=== PATIENT | female | born 1990 | race American Indian/Alaskan Native ===

== ENCOUNTER 2017-12-04 02:16 | Observation (INO) | payer OTHER ==
[2017-12-04 03:35] LABS: Basophils # (Auto) 0.1 K/mm3 (0.0-0.1); Eosinophils # (Auto) 0.3 K/mm3 (0.0-0.4); Eosinophils % (Auto) 4.1 % (0.0-4.3); Lymphocytes # (Auto) 1.7 K/mm3 (1.2-5.4); Lymphocytes % (Auto) 27.8 % (13.4-35.0); Mean Corpuscular HGB Conc 28 % (30-34); Monocytes # (Auto) 0.5 K/mm3 (0.0-0.8); Monocytes % (Auto) 8.6 % (0.0-7.3); Platelet Count 211 K/mm3 (140-440)
[2017-12-04 03:39] LABS: Mean Corpuscular Hemoglobin 16 pg (28-32); Mean Corpuscular Volume 59 fl (79-97)
[2017-12-04 03:40] LABS: Hematocrit 18.1 % (30.3-42.9)
[2017-12-04 03:48] LABS: BUN/Creatinine Ratio 15; Blood Urea Nitrogen 9 mg/dL (7-17); Calcium 8.8 mg/dL (8.4-10.2); Hemolysis Index 9
[2017-12-04 03:58] LABS: Bacteria,Urine 1+ /HPF (Negative); Bilirubin,Urine NEG (Negative); Blood,Urine NEG (Negative); Color,Urine Yellow (Yellow); Mucus,Urine 1+ /HPF; Protein,Urine <15 mg/dL mg/dL (Negative)
[2017-12-04] MEDS ORDERED: NACL 0.9% 500 ML 500 ML IV ONE ×2 (04:32→14:00)
--- NOTE | 2017-12-04 04:39 | ED Elopement Review ---
ED Pt Elopement review - Results review Lab results: Laboratory Tests 12/04/17 12/04/17 12/04/17 02:54 02:54 03:32 WBC 6.3 RBC 3.10 L Hgb 5.0 L* Hct 18.1 L* MCV 59 L MCH 16 L MCHC 28 L RDW 20.0 H Plt Count 211 Lymph % (Auto) 27.8 [place] % (Auto) 8.6 H Eos % (Auto) 4.1 Baso % (Auto) 1.0 Lymph # 1.7 [place] # 0.5 Eos # 0.3 Baso # 0.1 Seg Neutrophils % 58.5 Seg Neutrophils # 3.7 Sodium 136 L Potassium 3.8 Chloride 100.3 Carbon Dioxide 21 L Anion Gap 19 BUN 9 Creatinine 0.6 L Estimated GFR > 60 BUN/Creatinine Ratio 15 Glucose 107 H Calcium 8.8 Urine Color Yellow Urine Turbidity Clear Urine pH 5.0 Ur Specific [place] 1.018 Urine Protein <15 mg/dl Urine Glucose (UA) Neg Urine Ketones Neg Urine Blood Neg Urine Nitrite Neg Urine Bilirubin Neg Urine Urobilinogen 2.0 Ur Leukocyte Esterase Sm Urine WBC (Auto) 10.0 H Urine RBC (Auto) 3.0 U Epithel Cells (Auto) 5.0 Urine Bacteria (Auto) 1+ Urine Mucus 1+ Patient has symptomatic anemia and requires blood transfusion. Patient was in the room for lasted 15 minutes prior to leaving. As per charge nurse Juan Patient apparently had to go cloth picker her boyfriend and states that she will have him drop her off back to the ER later today to be fully treated and evaluated. Charge nurse tried to convince patient to stay for further treatment. I was unable to evaluate patient but I will order callback reminder to reach out to the patient to encourage her to return for treatment. - Call Back decision Pt Call Back Decision: Call pt to return to ED [facility]AN
[2017-12-04] MEDS ORDERED: NACL 0.9% 1000 ML 1,000 ML IV ONE (07:07)
--- NOTE | 2017-12-04 07:17 | Emergency Department Report ---
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 She had little bit of dizziness, was not syncopal, but reports a long-standing history of anemia, dating back at least to the of her twins 3 years ago, for which she had several units of blood transfused, but she's had anemia since that time. She has no regular doctor, takes no regular medication for anemia. She reports that her menstrual cycles have been occasionally heavy, but also not unusually so, and her last menstrual cycle was a month ago, and lasted 3 days. There has not been any significant clots. Past medical history is one of good general health, but although patient smokes cigarettes, has no other medical conditions. She denies any history of ulcers, has not had any symptoms suggestive of GI bleed, including no melena, hematochezia, and no hematemesis. She has not been ill recently. Complaint: dizziness -: During the night Timing: gradual onset (while at work) Description: lightheadedness, nausea History of Same: Yes (past history of anemia) History of Trauma: No Severity: mild Improves With: rest Worsens With: movement Associated Symptoms: denies other symptoms - Related Data Allergies Allergy/AdvReac Type Severity Reaction Status Date / Time No Known Allergies Allergy Unverified 12/04/17 02:29 ED Review of Systems ROS: Stated complaint: DIZZINESS Other details as noted in HPI Comment: All other systems reviewed and negative Constitutional: denies: chills, fever Respiratory: denies: cough, shortness of breath, wheezing Cardiovascular: denies: chest pain, palpitations Endocrine: no symptoms reported Gastrointestinal: denies: abdominal pain, nausea, vomiting, diarrhea, hematemesis, melena, hematochezia Genitourinary: denies: urgency, dysuria, discharge Musculoskeletal: denies: back pain, joint swelling, arthralgia Skin: denies: rash, lesions Neurological: denies: headache, weakness, paresthesias Psychiatric: denies: anxiety, depression Hematological/Lymphatic: denies: easy bleeding, easy bruising ED Past Medical Hx - Past Medical History Previous Medical History?: Yes Additional medical history: Anemia, childbirth with twins, 3 years ago, chronic since that time - Surgical History Past Surgical History?: Yes Additional Surgical History: c sect x1 - Social History Smoking Status: Current Every Day Smoker Substance Use Type: Alcohol, Marijuana ED Physical Exam - General Limitations: No Limitations General appearance: in no apparent distress - Head Head exam: Present: atraumatic, normocephalic - Eye Eye exam: Present: PERRL, EOMI - ENT ENT exam: Present: normal exam - Neck Neck exam: Present: normal inspection - Respiratory Respiratory exam: Present: normal lung sounds bilaterally - Cardiovascular Cardiovascular Exam: Present: regular rate, normal heart sounds - GI/Abdominal GI/Abdominal exam: Present: soft, normal bowel sounds. Absent: tenderness - Rectal Rectal exam: Present: normal rectal tone, heme (-) stool, hemorrhoids (not actively bleeding, no excoriations). Absent: heme (+) stool, black stool, mass - Extremities Exam Extremities exam: Present: normal inspection - Back Exam Back exam: Present: normal inspection - Neurological Exam Neurological exam: Present: alert, oriented X3, CN II-XII intact. Absent: motor sensory deficit - Psychiatric Psychiatric exam: Present: normal affect - Skin Skin exam: Present: warm, dry, intact. Absent: petechiae, ecchymosis ED Course Vital Signs 12/04/17 02:24 Temperature 36.5 C Pulse Rate 80 Respiratory 18 Rate Blood Pressure 119/65 O2 Sat by Pulse 100 Oximetry - Consultations Consultation #1: 12/04/17 07:20 Consult with on-call hospitalist, Dr. Caceres, with findings of patient's anemia conveyed, stable examination, and [facility]. ED Medical Decision Making - Lab Data Result diagrams: 12/04/17 02:54 12/04/17 02:54 - EKG Data -: EKG Interpreted by Me EKG shows normal: sinus rhythm (76 bpm), axis (normal QRS axis 52), intervals ( [place] interval borderline elevated at 210 ms, normal QT interval at 464 ms corrected), QRS complexes (LVH by voltage criteria anterior limb leads, lateral precordial leads), ST-T waves (unremarkable ST and T-wave segment) - Medical Decision Making Patient has a significant anemia with hemoglobin of 5 g, with no definite source , although most likely cause would be chronic blood loss from menstruation without adequate replacement. - Differential Diagnosis chronic anemia secondary to blood loss, GI bleed, inadequate iron replaceme Critical Care Time: No Critical care attestation.: If time is entered above; I have spent that time in minutes in the direct care of this critically ill patient, excluding procedure time. ED Disposition Clinical Impression: Anemia Disposition: OP ADMIT IP TO THIS HOSP Is pt being admited?: Yes Does the pt Need Aspirin: No Condition: Stable Referrals: PRIMARY CARE, [Primary Care Provider] - 3-5 Days Time of Disposition: 07:10
[2017-12-04] MEDS ORDERED: SODIUM CHLORIDE FLUSH SYRINGE 10 ML IV PRN ×2 (07:22→09:23)
[2017-12-04] MEDS ORDERED: ZOFRAN IV PRN ×2 (07:22→09:23)
[2017-12-04] MEDS ORDERED: TYLENOL PO PRN ×2 (07:22→09:23)
[2017-12-04 09:02] LABS: % Iron Saturation 2.55 %
--- NOTE | 2017-12-04 09:29 | History and Physical Report ---
History of Present Illness Date of examination: 12/04/17 Chief complaint: Weakness and dizziness History of present illness: 27-year-old -[place] female with no known past medical history and not on any medications was seen in the emergency department for weakness and dizziness and was found to be severely anemic with a hemoglobin of 5. Patient is being admitted on observation status for PRBC transfusion. She was found to be stool for heme occult negative. Denies any history of excess or abnormal menstrual periods. Upon review of the labs, she has iron deficiency anemia At the time of my examination she offers no specific complaints Past History Past Medical History: No medical history Past Surgical History: Social history: smoking Family history: diabetes, hypertension Medications and Allergies Allergies Allergy/AdvReac Type Severity Reaction Status Date / Time No Known Allergies Allergy Unverified 12/04/17 02:29 Active Meds: Active Medications Acetaminophen (Tylenol) 650 mg PO Q4H PRN PRN Reason: Pain MILD(1-3)/Fever >100.5/AGUIAR Sodium Chloride (Nacl 0.9% 1000 Ml) 1,000 mls @ 250 mls/hr IV ONCE ONE Stop: 12/04/17 11:06 Last Admin: 12/04/17 07:55 Dose: 250 mls/hr Ondansetron HCl (Zofran) 4 mg IV Q8H PRN PRN Reason: Nausea And Vomiting Sodium Chloride (Sodium Chloride Flush Syringe 10 Ml) 10 ml IV BID MOSHE Sodium Chloride (Sodium Chloride Flush Syringe 10 Ml) 10 ml IV PRN PRN PRN Reason: LINE FLUSH Review of Systems Constitutional: fatigue, weakness, no weight loss, no weight gain, no fever, no chills Ears, nose, mouth and throat: no nasal congestion, no dysphagia, no headache, no vertigo Breasts: deferred Cardiovascular: no chest pain, no palpitations, no syncope, no high blood pressure Respiratory: no cough, no shortness of breath Gastrointestinal: no abdominal pain, no nausea, no vomiting, no diarrhea, no constipation, no melena Genitourinary Female: no dysmenorrhea, no flank pain, no menorrhagia, no dysuria , no urinary frequency, no stress incontinence, no urge incontinence Menstruation: period normal, menses 1-7 days (2-4 days), no period heavy Rectal: no pain Musculoskeletal: no neck pain, no low back pain Integumentary: no rash Neurological: no parathesias, no numbness, no seizures, no syncope, no headaches Psychiatric: no anxiety, no depression Endocrine: no excessive thirst, no polydipsia, no polyuria Hematologic/Lymphatic: no easy bruising Allergic/Immunologic: no urticaria Exam - Constitutional Vitals: Temp Pulse Resp BP Pulse Ox 98.4 F 76 16 106/71 100 12/04/17 07:31 12/04/17 07:31 12/04/17 07:31 12/04/17 07:31 12/04/17 07:31 General appearance: Present: no acute distress, well-nourished - EENT Eyes: Present: PERRL, EOM intact ENT: hearing intact, clear oral mucosa, no thrush - Neck Neck: Present: supple. Absent: masses or JVD - Respiratory Respiratory effort: normal Respiratory: bilateral: CTA - Cardiovascular Rhythm: regular Heart Sounds: Present: S1 & S2 - Extremities Extremities: No edema - Abdominal General gastrointestinal: Present: soft, non-tender. Absent: hepatomegaly, splenomegaly Female genitourinary: Present: deferred - Rectal Rectal Exam: deferred - Integumentary Integumentary: Present: clear - Musculoskeletal Musculoskeletal: strength equal bilaterally - Psychiatric Psychiatric: appropriate mood/affect - Neurologic Neurologic: no focal deficits, moves all extremities Results - Labs CBC & Chem 7: 12/04/17 02:54 12/04/17 02:54 Labs: Abnormal lab results 12/04/17 12/04/17 12/04/17 Range/Units 02:54 02:54 03:32 RBC 3.10 L (3.65-5.03) M/mm3 Hgb 5.0 L* (10.1-14.3) gm/dl Hct 18.1 L* (30.3-42.9) % MCV 59 L (79-97) fl MCH 16 L (28-32) pg MCHC 28 L (30-34) % RDW 20.0 H (13.2-15.2) % [place] % (Auto) 8.6 H (0.0-7.3) % Sodium 136 L (137-145) mmol/L Carbon Dioxide 21 L (22-30) mmol/L Creatinine 0.6 L (0.7-1.2) mg/dL Glucose 107 H (65-100) mg/dL Iron (37-170) ug/dL TIBC (250-450) mcg/dL Transferrin (192-382) mg/dl Urine WBC (Auto) 10.0 H (0.0-6.0) /HPF Crossmatch 12/04/17 12/04/17 Range/Units 04:11 05:05 RBC (3.65-5.03) M/mm3 Hgb (10.1-14.3) gm/dl Hct (30.3-42.9) % MCV (79-97) fl MCH (28-32) pg MCHC (30-34) % RDW (13.2-15.2) % [place] % (Auto) (0.0-7.3) % Sodium (137-145) mmol/L Carbon Dioxide (22-30) mmol/L Creatinine (0.7-1.2) mg/dL Glucose (65-100) mg/dL Iron 13 L (37-170) ug/dL TIBC 510 H (250-450) mcg/dL Transferrin 419 H (192-382) mg/dl Urine WBC (Auto) (0.0-6.0) /HPF Crossmatch See Detail Assessment and Plan - Patient Problems (1) Microcytic anemia Current Visit: Yes Status: Acute Plan to address problem: Patient has severe anemia with a hemoglobin of 5.0 with MCV of 59 She will be typed and crossmatched and 2 units of PRBC was ordered She needs a prescription for [id number] iron tablets at the time of discharge She needs a referral to advertising account manager at the time of discharge
[2017-12-04] MEDS ORDERED: NACL 0.9% 500 ML 0 ML ONE (09:40)
[2017-12-04] MEDS: SODIUM CHLORIDE FLUSH SYRINGE 10 ML IV SCH ×2 (09:59→22:00)
[2017-12-04] MEDS ORDERED: SODIUM CHLORIDE FLUSH SYRINGE 10 ML IV SCH (10:00)
[2017-12-05 06:36] LABS: Hematocrit 23.2 % (30.3-42.9)
[2017-12-05 08:54] VITALS: BP 130/77
--- NOTE | 2017-12-05 10:02 | Discharge Summary ---
Providers - Providers Date of Admission: 12/04/17 09:28 Date of discharge: 12/05/17 Attending physician: KADY SMART Primary care physician: PROGRAM MANAGER SLP Hospitalization Reason for admission: severe anemia Condition: Stable Hospital course: 27-year-old Mrs. Cordero presented to the ED with complaints of weakness and lightheadedness and was noted to be severely anemic with a hemoglobin of 5 and she was admitted for further management. She was otherwise medically stable and she received 2 units of PRBC Post transfusion hemoglobin is 7.2 Patient is feeling good and has no complaints whatsoever Patient is medically stable for discharge She was strongly advised to see a appliquer zigzag as an outpatient Stool for occult blood was negative She also was recommended to take [id number] iron tablets 2 times a day Disposition: DC-01 TO HOME OR SELFCARE Time spent for discharge: 33 min - Discharge Diagnoses (1) Microcytic anemia Status: Chronic Comment: Take OTC iron tablets twice daily Follow up with a appliquer zigzag for further evaluation of her recurrent microcytic anemia Core Measure Documentation - Palliative Care Palliative Care/ Comfort Measures: Not Applicable - Core Measures Any of the following diagnoses?: none Exam - Constitutional Vitals: Temp Pulse Resp BP Pulse Ox 98.5 F 67 20 130/77 100 12/05/17 07:53 12/05/17 07:53 12/05/17 07:53 12/05/17 07:53 12/05/17 07:53 General appearance: Present: no acute distress - EENT Eyes: Present: PERRL, EOM intact ENT: hearing intact, clear oral mucosa, no thrush - Neck Neck: Present: supple, normal ROM. Absent: masses or JVD - Respiratory Respiratory effort: normal Respiratory: bilateral: CTA - Cardiovascular Rhythm: regular Heart Sounds: Present: S1 & S2 - Extremities Extremities: No edema - Abdominal General gastrointestinal: Present: soft, non-tender. Absent: hepatomegaly, splenomegaly - Rectal Rectal Exam: deferred - Integumentary Integumentary: Present: clear - Musculoskeletal Musculoskeletal: strength equal bilaterally - Neurologic Neurologic: no focal deficits Plan Activity: no restrictions Weight Bearing Status: Weight Bear as Tolerated Diet: regular Follow up with: BOO CELESTE MD [Primary Care Provider] - 3-5 Days LACY BARKER MD [Staff Physician] - 14 Days Prescriptions: Ferrous Sulfate 325 mg PO BID #60 tablet.
== END 2017-12-05 14:51 | disposition home or self-care (01) ==
LOC: ED 02:16 → 3A 09:28
PROVIDERS: ADMIT Internal Medicine; ATTEND Internal Medicine
DX: D50.0 Iron deficiency anemia secondary to blood loss (chronic) (principal)
CPT/HCPCS: 36415; 36430; 80048; 81001; 82271; 83550; 85014; 85018; 85025; 86850; 86900; 86901; 86920; 93005; 93010; G0378; G0480; J7040; P9016; 80320